=== PATIENT | female | born 1995 | race Two or more races ===

== ENCOUNTER 2022-11-19 13:34 | Outpatient (CLI) | payer OTHER | END 2022-11-19 14:15 | disposition home or self-care (01) | LOC: PRENATAL 13:34 | PROVIDERS: ATTEND Obstetrics & Gynecology Maternal & Fetal Medicine | DX: O36.80X0 Pregnancy with inconclusive fetal viability, not applicable or unspecified (principal); Z3A.01 Less than 8 weeks gestation of pregnancy ==

== ENCOUNTER 2022-12-12 09:27 | Outpatient (CLI) | payer OTHER | END 2022-12-12 11:15 | disposition home or self-care (01) | LOC: PRENATAL 09:27 | PROVIDERS: ATTEND Obstetrics & Gynecology Maternal & Fetal Medicine | DX: O36.80X0 Pregnancy with inconclusive fetal viability, not applicable or unspecified (principal); Z3A.13 13 weeks gestation of pregnancy ==

== ENCOUNTER 2023-01-30 10:33 | Outpatient (CLI) | payer OTHER | END 2023-01-30 12:15 | disposition home or self-care (01) | LOC: PRENATAL 10:33 | PROVIDERS: ATTEND Obstetrics & Gynecology Maternal & Fetal Medicine | DX: O35.9XX0 Maternal care for (suspected) fetal abnormality and damage, unspecified, not applicable or unspecified (principal); O35.3XX0 Maternal care for (suspected) damage to fetus from viral disease in mother, not applicable or unspecified; O44.00 Complete placenta previa NOS or without hemorrhage, unspecified trimester; Z3A.20 20 weeks gestation of pregnancy ==

== ENCOUNTER 2023-03-27 12:55 | Outpatient (CLI) | payer OTHER | END 2023-03-27 13:50 | disposition home or self-care (01) | LOC: PRENATAL 12:55 | PROVIDERS: ATTEND Obstetrics & Gynecology Maternal & Fetal Medicine | DX: O26.849 Uterine size-date discrepancy, unspecified trimester (principal); O44.00 Complete placenta previa NOS or without hemorrhage, unspecified trimester; O34.219 Maternal care for unspecified type scar from previous cesarean delivery; Z3A.28 28 weeks gestation of pregnancy ==